=== PATIENT | female | born 1965 | race Caucasian/White ===

== ENCOUNTER → 2016-08-18 | Outpatient (CLI) | payer BC, OTHER ==
[~2016-08-18] MED LIST: ALPR0.257 PO; BEPO10DR OP; CALC600T PO; CHOL400C2 PO; CYCL1DRO OP; ESTR8.1S2 TD; NADO20TA PO; ONAB100V IJ; PROG50VI IM; SPIR25TA3 PO; VALA500T PO; ZOLE5INF IV
--- NOTE | 2016-08-18 11:18 | KCIC ---
PROCEDURE MRI thoracic spine without contrast. HISTORY Dorsalgia, previous cervical fusion, chronic spinal pain and pressure TECHNIQUE Multiplanar, multi sequential non contrast MR imaging was performed of the cervical spine. COMPARISON None FINDINGS Thoracic vertebral body stature and AP alignment are adequate. Thoracic cord caliber is within normal limits without convincing focal signal abnormality. Small focus of signal change T12 vertebral body is slightly hyperintense on all sequences, likely a hemangioma. There is mild degenerative disc disease at T7-8 and T8-9, mild to moderate degenerative disc disease T11-12. There is negligible posterior disc osteophyte complex T11-12. There is no significant thoracic spinal stenosis. 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 As seen on the localizer, there has been anterior cervical fusion C4, C5, C6. Poorly evaluated, there may be a posterior protrusion or extrusion at C3-4. IMPRESSION 1. There is no significant thoracic spinal stenosis. There is degenerative disc disease and spondylosis greatest at T11-12. 2. Poorly evaluated, there may be posterior protrusion or extrusion C3-4. There has been anterior cervical fusion C4, C5, C6. Electronically signed by: Adam Herrera MD (August 18, 2016 11:17:27)
--- NOTE | 2016-08-18 11:25 | KCIC ---
PROCEDURE MRI lumbar spine without contrast. HISTORY Dorsalgia, chronic spinal pain and pressure, bilateral hip pain, new urinary incontinence TECHNIQUE Multiplanar, multi sequential non contrast MR imaging was performed of the lumbar spine. COMPARISON Post myelogram CT lumbar spine June 11, 2013 FINDINGS There is again moderate to severe degenerative disc disease at L5-S1. Lumbar vertebral body stature is maintained. There is again negligible posterior subluxation L5 relative to S1. Conus terminates at the inferior aspect of L2. There is a small focus of decreased T1 and T2 signal of the right iliac bone near the sacroiliac joint up to 0.9 cm, nonspecific and may be due to focus of nonspecific sclerosis, this area not included previously. L3-L4: Spinal canal and neural foramina are adequate. L4-5: Spinal canal and neural foramina are adequate. 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 L5-S1: There is again posterior central disc osteophyte complex and shallow protrusion without significant neural impingement. Neural foramina and spinal canal are adequate. IMPRESSION 1. There is again moderate to severe degenerative disc disease at L5-S1, mild spondylosis at this level. There is no significant lumbar neural foramina compromise or spinal stenosis. 2. There is a focus of signal change of the visualized right iliac bone otherwise difficult to characterize as not fully included on all images, may be due to focus of nonspecific sclerosis. Electronically signed by: Adam Herrera MD (August 18, 2016 11:23:24)
--- NOTE | 2016-08-18 11:56 | KCIC ---
PROCEDURE MR of the musculoskeletal pelvis HISTORY Back ache with radiation. Chronic spinal pain. Bilateral hip pain. COMPARISON None TECHNIQUE Routine multiplanar sequences are obtained. FINDINGS No acute fracture. No acute bone marrow edema. No evidence of femoral head osteonecrosis Small nodular area bone marrow heterogeneity at the right iliac bone subjacent to the anterior sacroiliac joint, measuring 10 millimeters diameter. This appears roughly isointense on T1 weighted images and mildly hyperintense on T2 weighted images. No additional bone lesions are identified. No significant effusion at either hip. Sacroiliac joints are intact. Pubic symphysis is intact. Muscle tissue appears intact. No abnormal soft tissue edema or fluid collection. The lower lumbar spine is barely visualized, but does demonstrate spondylosis with disc bulging or protrusions. Limited visualization of the uterus does demonstrate some heterogeneity, suggesting fibroids. IMPRESSION 1. No acute abnormality. 2. Small bone lesion at the posterior right iliac bone, significance uncertain. This is not overtly aggressive. Bone scan could be of benefit to determine if there is any activity here, particularly if the patient has any clinical risk factors for pathologic bone lesion. 3. Mild uterine heterogeneity is likely due to fibroids. Pelvic ultrasound could further evaluate as indicated. Electronically signed by: Herve Sheth MD (August 18, 2016 11:55:49)
== END | disposition home or self-care (01) ==
LOC: KCIC MRI 09:05
PROVIDERS: ATTEND Family Medicine
DX: M51.34 Other intervertebral disc degeneration, thoracic region (principal); M47.894 Other spondylosis, thoracic region; M51.36 Other intervertebral disc degeneration, lumbar region
CPT/HCPCS: 72146; 72148; 72195

== ENCOUNTER → 2016-08-21 | Outpatient (CLI) | payer BC ==
--- NOTE | 2016-08-21 16:24 | KCIC ---
PROCEDURE MR of the left hip HISTORY Left hip pain. TECHNIQUE Routine multiplanar sequences are obtained. COMPARISON None FINDINGS No bone lesion or acute fracture. No acute bone marrow edema. No femoral head osteonecrosis. No significant joint effusion. Small defect identified at the anterior labrum on a single sagittal slice, without confirmation of tear in the other imaging planes. No advanced primary osteoarthritis. Gluteus minimus and gluteus medius tendons are intact. Hamstring tendon intact. Iliopsoas tendon intact. Rectus femoris tendon attachment intact. No acute muscle pathology. IMPRESSION 1. Possible tiny tear of the anterior labrum, seen only on a single slice. 2. Otherwise no significant abnormality. Electronically signed by: Herve Sheth MD (August 21, 2016 16:22:50)
--- NOTE | 2016-08-21 17:07 | KCIC ---
PROCEDURE MR of the right hip HISTORY Right hip pain. TECHNIQUE Routine multiplanar sequences are obtained. COMPARISON MR musculoskeletal pelvis Aug 18 2016. FINDINGS No bone lesion or acute fracture. No acute bone marrow edema. No evidence of femoral head osteonecrosis. No significant joint effusion. There may be minimal degenerative spurring at the right hip but no advanced chondromalacia. No evidence of labral tear or paralabral cyst. Gluteus minimus and gluteus medius tendons are intact. Hamstring tendon intact. Iliopsoas tendon intact. Rectus femoris tendon attachment intact. No acute muscle pathology. Diagnostically limited large criuc-ao-thvo coronal survey sequence again demonstrates the bone lesion at the right posterior iliac bone, as was described on the previous exam. IMPRESSION 1. No acute abnormality at the right hip. 2. Small bone lesion at the right iliac bone is incompletely visualized on today's study, referred to be MR pelvis report from a 2016. Electronically signed by: Herve Sheth MD (August 21, 2016 17:05:39)
== END | disposition home or self-care (01) ==
LOC: KCIC MRI 14:27
PROVIDERS: ATTEND Family Medicine
DX: M54.9 Dorsalgia, unspecified (principal)
CPT/HCPCS: 73721

== ENCOUNTER → 2016-09-12 | Outpatient (CLI) | payer OTHER ==
--- NOTE | 2016-09-12 14:43 | KCIC ---
MR CERVICAL SPINE Indication: Neck pain and radiculopathy COMPARISON: CT cervical myelogram from June 11, 2013 Technique: Sagittal T2, sagittal STIR, sagittal T1, and axial gradient echo imaging was obtained of the cervical spine. FINDINGS: There are postsurgical changes of ACDF C4-C6. Alignment is maintained. Vertebral body heights are maintained. There is no cord signal abnormality. Visualized soft tissues of the neck are within normal limits. At the level of C3-4 there has been development of a soft disc protrusion that causes mass effect upon the cord. This is a new finding when compared to the extent exam from June 11, 2013. The remaining spinal canal shows no significant narrowing or significant disc protrusion. IMPRESSION: There is a soft disc protrusion causing mass effect upon the cord at the level of C3-C4. No cord signal abnormality at this time. Electronically signed by: Segun Garrido MD (09/12/2016 2:39 PM)
== END | disposition home or self-care (01) ==
LOC: KCIC MRI 13:04
PROVIDERS: ATTEND Neurological Surgery
DX: M50.11 Cervical disc disorder with radiculopathy, high cervical region (principal)
CPT/HCPCS: 72141

== ENCOUNTER → 2017-06-05 | Outpatient (CLI) | payer OTHER ==
[2017-06-05] MEDS: GADOBUTROL 7.5 MMOL/7.5 ML VIAL IV (11:51)
== END | disposition home or self-care (01) ==
LOC: KCIC MRI 10:43
DX: M51.37 Other intervertebral disc degeneration, lumbosacral region (principal); M25.78 Osteophyte, vertebrae
CPT/HCPCS: 72158; A9585

== ENCOUNTER → 2017-06-07 | Outpatient (CLI) | payer OTHER ==
[2017-06-07] MEDS: GADOBUTROL 7.5 MMOL/7.5 ML VIAL IV (13:23)
== END | disposition home or self-care (01) ==
LOC: KCIC MRI 12:07
DX: Z09 Encounter for follow-up examination after completed treatment for conditions other than malignant neoplasm (principal); M53.3 Sacrococcygeal disorders, not elsewhere classified; I10 Essential (primary) hypertension; R32 Unspecified urinary incontinence; Z98.890 Other specified postprocedural states
CPT/HCPCS: 72197; A9585

== ENCOUNTER → 2018-03-13 | Outpatient (CLI) | payer OTHER ==
[~2018-03-13] MED LIST changes: +GABA300C18 PO; +GADOBUTROL 7.5 MMOL/7.5 ML VIAL IV ONE; +OXYC5CAP PO; -SPIR25TA3 PO; +SPIR25TA5 PO; +TRAM50TA PO
--- NOTE | 2018-03-13 12:15 | KCIC ---
MR of the sacrum with and without contrast HISTORY: Follow-up sacral surgery for cyst. Low back pain and sacral pain. TECHNIQUE: Routine multiplanar sequences are obtained through the sacrum before and after intravenous contrast. FINDINGS: Region of susceptibility type artifact at the sacrum, just posterior to S3, consistent with prior surgical intervention. This appears similar as previous study. Sacrum appears otherwise intact. The soft tissues around the sacrum appear intact without evidence of edema, abnormal enhancement or fluid collection. Sacroiliac joints intact. The sacral foramina appear patent. Degenerative spondylosis of the partially visualized lower spine with disc bulging/protrusion at the lumbosacral junction. Small bone lesion at the posterior right iliac bone, best seen on T1-weighted sequence, is unchanged. The uterus is slightly heterogeneous, presumably indicative of fibroids. IMPRESSION: 1. Stable postsurgical changes of the sacrum. 2. No acute findings. 3. Small bone lesion of the posterior right iliac bone is unchanged. 4. Partially visualized lower spine demonstrates disc bulging/protrusion at the lumbosacral junction. Note this was previously evaluated on prior MR lumbar spine June 05, 2017. Electronically signed by: Herve Sheth MD (03/13/2018 12:11 PM) [facility]
== END | disposition home or self-care (01) ==
LOC: KCIC MRI 07:46
PROVIDERS: ATTEND Specialist
DX: Z09 Encounter for follow-up examination after completed treatment for conditions other than malignant neoplasm (principal); M47.897 Other spondylosis, lumbosacral region; M89.8X8 Other specified disorders of bone, other site; I10 Essential (primary) hypertension; Z98.890 Other specified postprocedural states
CPT/HCPCS: 72197; A9585